=== PATIENT | female | born 1970 | race American Indian/Alaskan Native ===

== ENCOUNTER 2016-10-08 19:47 | Emergency (ER) | payer MEDICAID ==
--- NOTE | 2016-10-09 02:11 | Emergency Department Report ---
HPI - General Chief Complaint: Skin Rash Time Seen by Provider: 10/09/16 01:30 - HPI HPI: 46-year-old female presents to the ED stating she says her body aching for about a week and her spouse is currently being treated for scabies and will like to treated as well. Explained patient denies fevers or chills/nausea/ vomiting/chest pains or shortness of breath or any other problems. ED Past Medical Hx - Past Medical History Previous Medical History?: Yes Hx Hypertension: No Hx Heart Attack/AMI: No Hx Congestive Heart Failure: No Hx Diabetes: No Hx GERD: Yes Hx Asthma: Yes (CXR 12/2013) Hx COPD: No Additional medical history: high cholest anemia - Surgical History Past Surgical History?: Yes Hx Breast Surgery: Yes (RIGHT LUMPECTOMY WITH LN) Additional Surgical History: tubal ligation. port to right chest - Social History Smoking Status: Never Smoker Substance Use Type: None - Medications Home Medications: Home Medications Medication Instructions Recorded Confirmed Last Taken Type Omeprazole [Omeprazole] 40 mg PO DAILY 03/10/15 03/11/15 03/09/15 09:00 History Simvastatin [Simvastatin] 40 mg PO DAILY 03/10/15 03/11/15 03/10/15 21:00 History HYDROcodone/APAP 5-325 [[place] 1 each PO Q6HR PRN #20 tablet 03/11/15 Unknown Rx 5/325] Diphenhydramine HCl [Benadryl 25 mg PO DAILY #30 tablet 10/09/16 Unknown Rx Allergy TAB] Permethrin 5% [Acticin 5% CREAM] 1 applicatio TP ONCE #1 tube 10/09/16 Unknown Rx Selenium Sulfide/Menthol [[place] 1 applic TP DAILY #1 bottle 10/09/16 Unknown Rx Blue 1% Shampoo] ED Review of Systems ROS: Stated complaint: ITCHING Other details as noted in HPI Constitutional: denies: chills, fever Eyes: denies: eye pain, eye discharge, vision change ENT: denies: ear pain, throat pain, dental pain, hearing loss, epistaxis, congestion Respiratory: denies: cough, shortness of breath, wheezing Cardiovascular: denies: chest pain, palpitations Endocrine: no symptoms reported Gastrointestinal: denies: abdominal pain, nausea, vomiting, diarrhea, hematochezia Genitourinary: denies: urgency, dysuria, discharge Musculoskeletal: denies: back pain, joint swelling, arthralgia, myalgia Skin: rash. denies: lesions Neurological: denies: headache, weakness, paresthesias, abnormal gait, vertigo Psychiatric: denies: anxiety, depression Hematological/Lymphatic: denies: easy bleeding, easy bruising Physical Exam - Physical Exam Vital Signs: Vital Signs 10/08/16 22:20 Temperature 98.5 F Pulse Rate 77 Respiratory 18 Rate Blood Pressure 117/73 [Left] O2 Sat by Pulse 98 Oximetry Physical Exam: GENERAL: Alert and oriented x3, no apparent distress, Normal Gait, atraumatic. HEAD: Head is normocephalic and a-traumatic. EYES: Extra ocular muscles are intact. Pupils are equal, round, and reactive to light and accommodation. EARS: symetrical, atraumatic, gross auditory nml bilaterally. NOSE: Nose symetrical, Nontender,Nares appeared normal. MOUTH:Mouth is well hydrated and without lesions. Patent airways. NECK: Supple. Non edematous, No carotid bruits. No lymphadenopathy or thyromegaly. LUNGS: Symetrical with respiration, No wheezing, no rales or crackles, CTAB. HEART: S1, S2 present, regular rate and rhythm without murmur, no rubs, no gallops. ABDOMEN: No organomegaly was noted,Positive bowel sounds, soft, and non- distended. . Nontender to palpation on all Quadrants, NO CVA tenderness. EXTREMITIES/MUSCULOSKELETAL: No cyanosis, clubbing, rash, lesions or edema. Full ROM bilaterally. UE/LE Pulses 2+ bilaterally. NEUROLOGIC: No focal Deficit, Cranial nerves II through XII are grossly intact. No loss of sensation, SKIN: Warm and dry, No lesions, No ulceration or induration present. Generalized scratch abreu on arms and legs ED Course Vital Signs 10/08/16 22:20 Temperature 98.5 F Pulse Rate 77 Respiratory 18 Rate Blood Pressure 117/73 [Left] O2 Sat by Pulse 98 Oximetry ED Medical Decision Making - Medical Decision Making 46-year-old female presents with scabies exposure. ED course: Discussed the patient home remedy of treatment. Discussed to follow up with primary care physician. Critical care attestation.: If time is entered above; I have spent that time in minutes in the direct care of this critically ill patient, excluding procedure time. ED Disposition Clinical Impression: Scabies exposure Disposition: DISCHARGED TO HOME OR SELFCARE Is pt being admited?: No Does the pt Need Aspirin: No Condition: Stable Instructions: Scabies (ED) Prescriptions: Diphenhydramine HCl [Benadryl Allergy TAB] 25 mg PO DAILY #30 tablet Permethrin 5% [Acticin 5% CREAM] 1 applicatio TP ONCE #1 tube Selenium Sulfide/Menthol [[place] Blue 1% Shampoo] 1 applic TP DAILY #1 bottle Referrals: PRIMARY CARE, [Primary Care Provider] - 3-5 Days ERICA LYLES MD [Referring] - 3-5 Days DENIA MENDOZA MD [Referring] - 3-5 Days Forms: Work/School Release Form(ED) Time of Disposition: 02:17
[2016-10-09 02:29] VITALS: BP 120/68
== END 2016-10-09 02:47 | disposition home or self-care (01) ==
LOC: ED 19:47
DX: R21 Rash and other nonspecific skin eruption (principal); K21.9 Gastro-esophageal reflux disease without esophagitis; J45.909 Unspecified asthma, uncomplicated; E78.00 Pure hypercholesterolemia, unspecified; D64.9 Anemia, unspecified
CPT/HCPCS: 99282

== ENCOUNTER 2018-09-01 17:20 | Emergency (ER) | payer MEDICAID ==
[2018-09-01 17:27] VITALS: BP 130/70
[2018-09-01 18:26] LABS: Bacteria,Urine 1+ /HPF (Negative); Bilirubin,Urine NEG (Negative); Blood,Urine NEG (Negative); Color,Urine Amber (Yellow); Mucus,Urine 3+ /HPF; Urobilinogen,Urine < 2.0 mg/dL (<2.0)
--- NOTE | 2018-09-01 18:48 | Emergency Department Report ---
ED Abdominal Pain HPI - General Chief Complaint: Nausea/Vomiting/Diarrhea Stated Complaint: CHILLS,SWEATS,CRAMPS Time Seen by Provider: 09/01/18 18:16 Source: patient, family Mode of arrival: Ambulatory Limitations: No Limitations - History of Present Illness Initial Comments: This is a 48-year-old female here report that she has been having nausea vomi ting diarrhea with abdominal cramping for 24 hours. Her daughter has similar symptoms and here with mom. She says she had 6 diarrhea stools today and vomited 3 and she took Tylenol prior to coming to the hospital she is having fever and chills. Pain to abdomen 10/10 and cramping. No alleviating or exacerbating factors. Denies any back pain. Denies any vaginal bleeding or discharge. Denies any urinary burning, frequency or urgency. Denies any shortness of breath or chest pain. MD Complaint: abdominal pain, other (nausea/vomiting diarrhea) Onset/Timin -: days(s) Location: diffuse Radiation: none Migration to: no migration Severity: severe Severity scale (0 -10): 10 Quality: cramping Consistency: constant Worsens With: nothing Context: sick contacts Associated Symptoms: nausea, vomiting, diarrhea, fever, chills. denies: constipation, dysuria, hematemesis, hematochezia, melena, hematuria, anorexia, syncope Treatments Prior to Arrival: other (Tylenol) - Related Data LMP Date: 10/30/13 LMP (females 10-50): other (and a positive) Home Medications Medication Instructions Recorded Confirmed Last Taken Omeprazole 40 mg PO DAILY 03/10/15 03/11/15 03/09/15 09:00 Simvastatin 40 mg PO DAILY 03/10/15 03/11/15 03/10/15 21:00 Previous Rx's Medication Instructions Recorded Last Taken Type HYDROcodone/APAP 5-325 [[place] 1 each PO Q6HR PRN #20 tablet 03/11/15 Unknown Rx 5/325] Diphenhydramine HCl [Benadryl 25 mg PO DAILY #30 tablet 10/09/16 Unknown Rx Allergy TAB] Permethrin 5% [Acticin 5% CREAM] 1 applicatio TP ONCE #1 tube 10/09/16 Unknown Rx Selenium Sulfide/Menthol [[place] 1 applic TP DAILY #1 bottle 10/09/16 Unknown Rx Blue 1% Shampoo] Acetaminophen [Acetaminophen TAB] 500 mg PO Q6HR PRN #12 tablet 09/01/18 Unknown Rx Dicyclomine [Bentyl] 40 mg PO QID 3 Days #12 tablet 09/01/18 Unknown Rx Ondansetron [Zofran ODT TAB] 8 mg PO Q8HR PRN #12 tab.rapdis 09/01/18 Unknown Rx Sulfamethoxazole/Trimethoprim 1 each PO BID 3 Days #6 tablet 09/01/18 Unknown Rx [Bactrim DS TAB] Allergies Allergy/AdvReac Type Severity Reaction Status Date / Time No Known Allergies Allergy Unverified 09/01/18 17:24 ED Review of Systems ROS: Stated complaint: CHILLS,SWEATS,CRAMPS Other details as noted in HPI Constitutional: chills, fever, malaise ENT: congestion. denies: ear pain, throat pain Respiratory: denies: cough, shortness of breath, wheezing Cardiovascular: denies: chest pain, palpitations, edema, syncope Gastrointestinal: abdominal pain, nausea, vomiting, diarrhea. denies: con stipation, hematemesis, melena, hematochezia Genitourinary: denies: urgency, dysuria, frequency, hematuria, discharge Musculoskeletal: denies: back pain, joint swelling, arthralgia, myalgia Skin: denies: rash Neurological: denies: headache, numbness, paresthesias, abnormal gait, vertigo ED Past Medical Hx - Past Medical History Previous Medical History?: Yes Hx Hypertension: No Hx Heart Attack/AMI: No Hx Congestive Heart Failure: No Hx Diabetes: No Hx GERD: Yes Hx Asthma: Yes Hx COPD: No Additional medical history: high cholest anemia - Surgical History Past Surgical History?: Yes Hx Breast Surgery: Yes (RIGHT LUMPECTOMY WITH LN) Additional Surgical History: tubal ligation - Family History Family history: hypertension - Social History Smoking Status: Never Smoker Substance Use Type: None - Medications Home Medications: Home Medications Medication Instructions Recorded Confirmed Last Taken Type Omeprazole 40 mg PO DAILY 03/10/15 03/11/15 03/09/15 09:00 History Simvastatin 40 mg PO DAILY 03/10/15 03/11/15 03/10/15 21:00 History HYDROcodone/APAP 5-325 [[place] 1 each PO Q6HR PRN #20 tablet 03/11/15 Unknown Rx 5/325] Diphenhydramine HCl [Benadryl 25 mg PO DAILY #30 tablet 10/09/16 Unknown Rx Allergy TAB] Permethrin 5% [Acticin 5% CREAM] 1 applicatio TP ONCE #1 tube 10/09/16 Unknown Rx Selenium Sulfide/Menthol [[place] 1 applic TP DAILY #1 bottle 10/09/16 Unknown Rx Blue 1% Shampoo] Acetaminophen [Acetaminophen TAB] 500 mg PO Q6HR PRN #12 tablet 09/01/18 Unknown Rx Dicyclomine [Bentyl] 40 mg PO QID 3 Days #12 tablet 09/01/18 Unknown Rx Ondansetron [Zofran ODT TAB] 8 mg PO Q8HR PRN #12 tab.rapdis 09/01/18 Unknown Rx Sulfamethoxazole/Trimethoprim 1 each PO BID 3 Days #6 tablet 09/01/18 Unknown Rx [Bactrim DS TAB] ED Physical Exam - General Limitations: No Limitations General appearance: alert, in no apparent distress - Head Head exam: Present: atraumatic, normocephalic, normal inspection, other (normal exam) - Eye Eye exam: Present: normal appearance, PERRL, EOMI Pupils: Present: normal accommodation - ENT ENT exam: Present: normal exam, normal orophraynx, mucous membranes moist, TM's normal bilaterally, normal external ear exam, other (normal exam) - Neck Neck exam: Present: normal inspection, full ROM, other (no C-spine tenderness). Absent: tenderness, meningismus, lymphadenopathy - Respiratory Respiratory exam: Present: normal lung sounds bilaterally. Absent: respiratory distress, chest wall tenderness - Cardiovascular Cardiovascular Exam: Present: normal rhythm, tachycardia, normal heart sounds - GI/Abdominal GI/Abdominal exam: Present: soft, normal bowel sounds. Absent: distended, tenderness, guarding, rebound, rigid, organomegaly, mass - Extremities Exam Extremities exam: Present: normal inspection, full ROM, normal capillary refill, other (No cce. + 2 pulses in all extremities, no neurovascular compromise). Absent: tenderness, pedal edema, joint swelling, calf tenderness - Back Exam Back exam: Present: normal inspection, full ROM, other (ambulates without any difficulties). Absent: tenderness, CVA tenderness (R), CVA tenderness (L), muscle spasm, paraspinal tenderness, vertebral tenderness, rash noted - Neurological Exam Neurological exam: Present: alert, oriented X3, normal gait, reflexes normal. Absent: motor sensory deficit - Psychiatric Psychiatric exam: Present: normal affect, normal mood - Skin Skin exam: Present: warm, dry, intact, normal color. Absent: rash ED Course Vital Signs 09/01/18 17:24 Temperature 99.2 F Pulse Rate 114 H Respiratory 18 Rate Blood Pressure 130/70 O2 Sat by Pulse 100 Oximetry Vital Signs 09/01/18 09/01/18 17:24 22:21 Temperature 99.2 F Pulse Rate 114 H 100 H Respiratory 18 Rate Blood Pressure 130/70 O2 Sat by Pulse 100 Oximetry - Reevaluation(s) Reevaluation #1: 09/01/18 22:22 Patient and given 1 L of normal saline, Bentyl, Zofran, lidocaine and Maalox. After evaluation she states she is feeling a lot better. ED Medical Decision Making - Lab Data Result diagrams: 09/01/18 19:34 Lab Results 09/01/18 09/01/18 09/01/18 Range/Units 17:36 19:34 20:42 Sodium 142 (137-145) mmol/L Potassium 3.9 (3.6-5.0) mmol/L Chloride 102.6 (98-107) mmol/L Carbon Dioxide 26 (22-30) mmol/L Anion Gap 17 mmol/L BUN 15 (7-17) mg/dL Creatinine 0.6 L (0.7-1.2) mg/dL Estimated GFR > 60 ml/min BUN/Creatinine Ratio 25 % Glucose 109 H (65-100) mg/dL Calcium 9.2 (8.4-10.2) mg/dL Total Bilirubin 2.00 H (0.1-1.2) mg/dL AST 20 (5-40) units/L ALT 29 (7-56) units/L Alkaline Phosphatase 63 (35-129) units/L Total Protein 7.6 (6.3-8.2) g/dL Albumin 4.5 (3.9-5) g/dL Albumin/Globulin Ratio 1.5 % Lipase 17 (13-60) units/L Urine Color Cherie (Yellow) Urine Turbidity Slightly-cloudy (Clear) Urine pH 5.0 (5.0-7.0) Ur Specific Leonore 1.039 H (1.003-1.030) Urine Protein 30 mg/dl (Negative) mg/dL Urine Glucose (UA) Neg (Negative) mg/dL Urine Ketones Neg (Negative) mg/dL Urine Blood Neg (Negative) Urine Nitrite Neg (Negative) Urine Bilirubin Neg (Negative) Urine Urobilinogen < 2.0 (<2.0) mg/dL Ur Leukocyte Esterase Sm (Negative) Urine WBC (Auto) 8.0 H (0.0-6.0) /HPF Urine RBC (Auto) 9.0 (0.0-6.0) /HPF U Epithel Cells (Auto) 21.0 H (0-13.0) /HPF Urine Bacteria (Auto) 1+ (Negative) /HPF Urine Mucus 3+ /HPF Influenza A (Rapid) Negative (Negative) Influenza B (Rapid) Negative (Negative) Group A Strep Rapid Negative (Negative) Urine culture sent - Radiology Data Radiology results: report reviewed Findings [facility] [address] [place] [address] XRay Report Signed Patient: KIMMY SOLOMON MR#: [id number] : 1970 Acct:[id number] Age/Sex: 48 / F ADM Date: 09/01/18 Loc: ED Attending Dr: Ordering Physician: MARCY ROCA Date of Service: 09/01/18 Procedure(s): XR abdomen 2V Accession Number(s): [id number] cc: MARCY ROCA Fluoro Time In Minutes: FINAL REPORT EXAM: XR ABDOMEN 2V HISTORY: nvd/abdominal pain COMPARISON: None available. FINDINGS: AP views of the abdomen obtained. No gross free air. Multiple pelvic phleboliths. Gas scattered within non dilated bowl loops. No gross pathologic calcifications. Bony structures are grossly intact. IMPRESSION: Nonobstructive bowel gas pattern. Transcribed By: LMA Dictated By: LEA CROWLEY MD Electronically Authenticated By: LEA CROWLEY MD Signed Date/Time: 09/01/181958 DD/ 00 TD/TT: 09/01/182000 - Medical Decision Making Patient and given 1 L of normal saline, Bentyl, Zofran, lidocaine and Maalox. After evaluation she states she is feeling a lot better. Urinalysis cloudy with 1+ bacteria suspect from diarrhea. She is not having any urinary symptoms without go ahead and treat her with 3 days of Bactrim. BMP is stable, influenza A and B and strep test negative. Lipase is stable. Abdominal x-ray 2 view revealed negative finances and this was dictated by radiologist report reviewed by myself. Patient educated on laboratory results and x-ray findings and diagnosis and treatment plan. Patient is feeling a lot better without any pain or nausea and discharged home in stable condition with prescription for Bentyl , Bactrim DS, Tylenol and Zofran and to follow-up with her primary care doctor in 2-3 days which she does have one. - Differential Diagnosis bowel obstruction, enteritis, UTI, viral syndrome, strep Critical care attestation.: If time is entered above; I have spent that time in minutes in the direct care of this critically ill patient, excluding procedure time. ED Disposition Clinical Impression: Nausea vomiting and diarrhea, Fever in adult, Abdominal cramping UTI (urinary tract infection) Qualifiers: Urinary tract infection type: acute cystitis Hematuria presence: without hematuria Qualified Code(s): N30.00 - Acute cystitis without hematuria Disposition: DC- TO HOME OR SELFCARE Is pt being admited?: No Does the pt Need Aspirin: No Condition: Stable Instructions: Abdominal Pain (ED), Acute Nausea and Vomiting (ED), Acute Diarrhea (ED), Gastroenteritis (ED), Urinary Tract Infection in Women (ED) Additional Instructions: Please increase her fluid intake to 2-3 L of water a day to include Pedialyte or Gatorade. Take Medication as prescribed If symptoms worsen, return to the emergency room Follow-up with primary care doctor in 2-3 days Referrals: EUGENE NGUYEN MD [Primary Care Provider] - 2-3 Days Forms: Work/School Release Form(ED)
[2018-09-01] MEDS ORDERED: ALUM-MAG HYDROX-SIMETH 200-200-20MG/5ML PO ONE (18:54)
[2018-09-01] MEDS ORDERED: BENTYL PO ONE (18:54)
[2018-09-01] MEDS ORDERED: LIDOCAINE VISCOUS 2% PO ONE (18:54)
[2018-09-01] MEDS ORDERED: ZOFRAN IV ONE (18:54)
[2018-09-01] MEDS ORDERED: NACL 0.9% 1000 ML 1,000 ML IV ONE (18:54)
--- NOTE | 2018-09-01 19:59 | XRay Report ---
FINAL REPORT EXAM: XR ABDOMEN 2V HISTORY: nvd/abdominal pain COMPARISON: None available. FINDINGS: AP views of the abdomen obtained. No gross free air. Multiple pelvic phleboliths. Gas scattered withi n non dilated bowl loops. No gross pathologic calcifications. Bony structures are grossly intact. IMPRESSION: Nonobstructive bowel gas pattern.
[2018-09-01 20:14] LABS: Alanine Aminotransferase 29 units/L (7-56); Albumin 4.5 g/dL (3.9-5); BUN/Creatinine Ratio 25; Blood Urea Nitrogen 15 mg/dL (7-17); Calcium 9.2 mg/dL (8.4-10.2); Hemolysis Index 32
== END 2018-09-01 22:39 | disposition home or self-care (01) ==
LOC: ED 17:20
DX: N30.00 Acute cystitis without hematuria (principal); R10.84 Generalized abdominal pain; R11.2 Nausea with vomiting, unspecified; R19.7 Diarrhea, unspecified; K21.9 Gastro-esophageal reflux disease without esophagitis; J45.909 Unspecified asthma, uncomplicated; E78.00 Pure hypercholesterolemia, unspecified; Z79.899 Other long term (current) drug therapy; Z98.51 Tubal ligation status
CPT/HCPCS: 36415; 74019; 80053; 81001; 83690; 87086; 87116; 87400; 87430; 96361; 96374; 99284; J2405; J7030

== ENCOUNTER 2018-09-19 10:31 | Emergency (ER) | payer MEDICAID ==
[2018-09-19 10:49] VITALS: BP 131/74
[2018-09-19] MEDS ORDERED: IBUPROFEN PO ONE (10:49)
[2018-09-19] MEDS ORDERED: IBUPROFEN ONE (10:53)
--- NOTE | 2018-09-19 12:05 | XRay Report ---
ROUTINE CHEST, TWO VIEWS: HISTORY: Cough with fever. There is poor inspiration. The trachea, heart, mediastinal contour, lung wilson and bony thorax are unremarkable. IMPRESSION: Unremarkable chest x-ray.
--- NOTE | 2018-09-19 13:16 | Emergency Department Report ---
Minor Respiratory - HPI Chief Complaint: Dyspnea/Respdistress Stated Complaint: FLU LIKE Time Seen by Provider: 09/19/18 11:33 Duration: 3 Days Severity: mild Minor Respiratory: Yes Able to Tolerate Fluids, Yes Cough (non productive), Yes Chest Pain (soreness in the bilateral lower ribs), Yes Shortness of Breath, Yes Fever, No Rhinorrhea, No Sore Throat, No Ear Pain, No Sick Contacts, No Hemop tysis ED Review of Systems ROS: Stated complaint: FLU LIKE Other details as noted in HPI Comment: All other systems reviewed and negative ED Past Medical Hx - Past Medical History Hx Hypertension: No Hx Heart Attack/AMI: No Hx Congestive Heart Failure: No Hx Diabetes: No Hx GERD: Yes Hx Asthma: Yes Hx COPD: No Additional medical history: high cholest anemia - Surgical History Hx Breast Surgery: Yes (RIGHT LUMPECTOMY WITH LN) Additional Surgical History: tubal ligation - Social History Smoking Status: Never Smoker Substance Use Type: None - Medications Home Medications: Home Medications Medication Instructions Recorded Confirmed Last Taken Type Omeprazole 40 mg PO DAILY 03/10/15 03/11/15 03/09/15 09:00 History Simvastatin 40 mg PO DAILY 03/10/15 03/11/15 03/10/15 21:00 History HYDROcodone/APAP 5-325 [[place] 1 each PO Q6HR PRN #20 tablet 03/11/15 Unknown Rx 5/325] Diphenhydramine HCl [Benadryl 25 mg PO DAILY #30 tablet 10/09/16 Unknown Rx Allergy TAB] Permethrin 5% [Acticin 5% CREAM] 1 applicatio TP ONCE #1 tube 10/09/16 Unknown Rx Selenium Sulfide/Menthol [[place] 1 applic TP DAILY #1 bottle 10/09/16 Unknown Rx Blue 1% Shampoo] Acetaminophen [Acetaminophen TAB] 500 mg PO Q6HR PRN #12 tablet 09/01/18 Unknown Rx Dicyclomine [Bentyl] 40 mg PO QID 3 Days #12 tablet 09/01/18 Unknown Rx Ondansetron [Zofran ODT TAB] 8 mg PO Q8HR PRN #12 tab.rapdis 09/01/18 Unknown Rx Sulfamethoxazole/Trimethoprim 1 each PO BID 3 Days #6 tablet 09/01/18 Unknown Rx [Bactrim DS TAB] ALBUTEROL Inhaler (OR & NICU) 2 puff IH QID PRN #1 inhalation 09/19/18 Unknown Rx [ProAir HFA Inhaler] Azithromycin [Zithromax Z-BROOK] 250 mg PO DAILY #6 tablet 09/19/18 Unknown Rx HYDROcodone/APAP 5-325 [[place] 1 each PO Q4HR PRN #12 tablet 09/19/18 Unknown Rx 5/325] predniSONE [Deltasone] 20 mg PO QDAY #5 tab 09/19/18 Unknown Rx Minor Respiratory Exam - Exam General: Vital signs noted. No distress. Alert and acting appropriately. HEENT: Yes Moist Mucous Membranes, No Pharyngeal Erythema, No Pharyngeal Exudates, No Rhinorrhea, No Conjuctival Injection, No Frontal Tenderness, No Maxillary Tenderness Ear: Neither TM Bulge, Neither TM Erythema, Neither EAC Pain, Neither EAC Discharge Neck: Yes Supple, No Adenopathy Lungs: Yes Good Air Exchange, Yes Cough, No Wheezes, No Ronchi, No Stridor, No Labored Respirations, No Retractions, No Use of Accessory Muscles, No Other Abnormal Lung Sounds Heart: Yes Regular, No Murmur Abdomen: Yes Normal Bowel Sounds, No Tenderness, No Peritoneal Signs Skin: No Rash, No Edema Neurologic: Alert and oriented, no deficits. Musculoskeletal: Unremarkable. ED Course Vital Signs 09/19/18 10:48 Temperature 100.6 F H Pulse Rate 104 H Blood Pressure 131/74 O2 Sat by Pulse 97 Oximetry ED Medical Decision Making - Radiology Data Chest x-ray is within normal limits - Medical Decision Making Patient will be discharged home with meds for symptomatic relief. Patient is a smoker [employer]. Critical care attestation.: If time is entered above; I have spent that time in minutes in the direct care of this critically ill patient, excluding procedure time. ED Disposition Clinical Impression: Acute bronchitis, Costochondral chest pain Disposition: -01 TO HOME OR SELFCARE Is pt being admited?: No Does the pt Need Aspirin: No Condition: Stable Instructions: Acute Bronchitis (ED), Costochondritis (ED) Referrals: EUGENE NGUYEN MD [Primary Care Provider] - 3-5 Days Time of Disposition: 13:15
== END 2018-09-19 13:30 | disposition home or self-care (01) ==
LOC: ED 10:31
DX: J20.9 Acute bronchitis, unspecified (principal); M94.0 Chondrocostal junction syndrome [Tietze]; K21.9 Gastro-esophageal reflux disease without esophagitis; J45.909 Unspecified asthma, uncomplicated; E78.00 Pure hypercholesterolemia, unspecified; Z86.2 Personal history of diseases of the blood and blood-forming organs and certain disorders involving the immune mechanism; Z98.51 Tubal ligation status; Z79.899 Other long term (current) drug therapy
CPT/HCPCS: 71046; 93005; 93010; 99283

== ENCOUNTER 2019-01-03 14:10 | Emergency (ER) | payer MEDICAID, OTHER ==
[2019-01-03 14:24] VITALS: BP 123/71
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
--- NOTE | 2019-01-03 15:34 | Cat Scan Report ---
PROCEDURE: CT CERVICAL SPINE WO CON TECHNIQUE: Computerized tomography of the cervical spine was performed from the skull base to T1 with out contrast material. Coronal and sagittal reconstructed imaging provided. This study is performed w ithout intravenous contrast and the sensitivity for pathology, including neoplasms, adenopathy, absce ss, inflammation and infection is reduced. CT DOSE LENGTH PRODUCT: 626.5 mGy-cm. HISTORY: pain COMPARISONS: None currently available. FINDINGS: There is no fracture. There is no subluxation. There is no atlantooccipital dislocation. C1-C2: Mild arthritis. No significant canal narrowing. C2-C4: No significant canal or foraminal narrowing. C4-C5: Minimal symmetrical disc osteophyte complex. No significant canal or foraminal narrowing. C5-C6: Symmetrical disc osteophyte complex. No significant canal or foraminal narrowing. C6-C7: Minimal bulge. No significant canal or foraminal narrowing. C7-T1: No significant canal or foraminal narrowing. Prevertebral soft tissue structures are unremarkable. IMPRESSION: * No fracture. * Mild arthritis at C1-C2. * Mild degenerative discs. This document is electronically signed by Osman Cervantes MD., Jan 03 2019 03:32:27 PM ET
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
== END 2019-01-03 16:28 | disposition home or self-care (01) ==
LOC: ED 14:10
DX: M54.2 Cervicalgia (principal); R07.89 Other chest pain; K21.9 Gastro-esophageal reflux disease without esophagitis; J45.909 Unspecified asthma, uncomplicated; E78.00 Pure hypercholesterolemia, unspecified; Z98.51 Tubal ligation status; V89.2XXA Person injured in unspecified motor-vehicle accident, traffic, initial encounter; Y93.89 Activity, other specified; Y92.488 Other paved roadways as the place of occurrence of the external cause; Y99.8 Other external cause status
CPT/HCPCS: 72125; 99283